=== PATIENT | female | born 1980 | race Caucasian/White ===

== ENCOUNTER 2016-09-04 14:12 | Emergency (ER) | payer OTHER ==
[2016-09-04 14:31] VITALS: TEMP 98.6
[2016-09-04 14:52] LABS: COLOR YELLOW; LEUKOCYTE ESTERASE,URINE NEGATIVE (NEGATIVE); NITRITE,URINE NEGATIVE (NEGATIVE)
--- NOTE | 2016-09-04 15:54 | EDPHY ---
H & P Time Seen by Provider: 09/04/16 15:44 HPI/ROS: CHIEF COMPLAINT: Abdominal pain. HISTORY OF PRESENT ILLNESS: The patient is a 35-year-old female with a history of PUD and colitis who presents with severe umbilical abdominal pain pain since Sunday. She has been unable to eat since the onset of the pain. The pain is constant and is worsened with eating and swallowing. It is associated with back pain as well. She reports that her BMs are normal for her. She denies vomiting, fever, or other complaints. She was last seen in the ED in May and admitted for colitis. Since then she has had an endoscopy and was was prescribed Linzess and daily Prilosec for erosions in her stomach. The pain today is similar in rating to the pain in May. REVIEW OF SYSTEMS: A complete 10-point review of systems was performed and is negative except for those items mentioned in the HPI. Past Medical/Surgical History: Bipolar disorder, colitis, appendicitis. Social History: Former smoker. Smoking Status: Former smoker Physical Exam: General Appearance: Tearful. Alert, no distress Eyes: Pupils equal and round, no conjunctival pallor or injection ENT, Mouth: Mucous membranes moist Neck: Normal inspection Respiratory: Lungs are clear to auscultation Cardiovascular: Regular rate and rhythm Gastrointestinal: Abdomen is soft. Epigastric tenderness, no peritoneal signs. Neurological: A&O, nonfocal, normal gait Skin: Warm and dry, no rash Extremities: Nontender, no pedal edema Psychiatric: Mood and affect normal Constitutional: Initial Vital Signs Temperature (C) 37 C 09/04/16 14:29 Heart Rate 94 09/04/16 14:29 Respiratory Rate 16 09/04/16 14:29 Blood Pressure 124/89 H 09/04/16 14:29 O2 Sat (%) 99 09/04/16 14:29 O2 Delivery Mode Room Air Allergies/Adverse Reactions: amoxicillin [Amoxicillin] Allergy (Severe, Verified 09/04/16 14:27) Vomiting amoxicillin trihydrate [From Augmentin] Allergy (Severe, Verified 09/04/16 14:27 ) Vomiting hydromorphone [Hydromorphone] Allergy (Severe, Verified 09/04/16 14:27) Itching potassium clavula *RETIRED-04/22/12 [From Augmentin] Allergy (Severe, Verified 09/04/16 14:27) Vomiting cephalexin monohydrate [From Keflex] Allergy (Verified 09/04/16 14:27) eggs Allergy (Uncoded 05/26/16 21:37) Anaphylaxis watermelon Allergy (Uncoded 05/26/16 21:37) Home Medications: Medication Instructions Recorded Ambien Cr 09/04/16 [facility]arez Nutritionals 09/04/16 Hydrocodone/APAP 5/325 [[place] 1 - 2 tab PO Q4H PRN #10 tab 09/04/16 5/325] Linzess 09/04/16 Ondansetron Odt [Zofran Odt 4 mg 4 mg PO Q4 PRN #6 tab 09/04/16 (*)] PRILOSEC 09/04/16 Pantoprazole Sodium [Protonix 40mg 40 mg PO DAILY #20 tab 09/04/16 (*)] Xanax 09/04/16 Zantac 09/04/16 Medical Decision Making ED Course/Re-evaluation: This patient presents with severe abdominal pain, without evidence of surgical abdomen. Given her recent extensive evaluation, I do not feel that repeat imaging is indicated. An IV was established and labs ordered. 1L IV saline administered for hydration, 40mg IV Protonix, 55ml PO GI cocktail, 6mg IV Morphine for abdominal pain, and 4mg IV Zofran for nausea. 1723: Reassessed patient. She reports that the GI cocktail initially made her feel worse, but she is now starting to feel better. Abdominal exam remains unchanged. Laboratory results discussed with the patient. Will discharge her home on Protonix, Zofran and [place]. Abdominal pain precautions given. Differential Diagnosis: Differential diagnosis includes though it is not limited to appendicitis, cholecystitis, diverticulitis, pyelonephritis, bowel perforation, small bowel obstruction. - Data Points Laboratory Results: Laboratory Results 09/04/16 16:20 09/04/16 16:20 Medications Given: Discontinued Medications Sodium Chloride (Ns) 1,000 mls @ 0 mls/hr IV ONCE ONE PRN Reason: Wide Open Stop: 09/04/16 15:57 Last Admin: 09/04/16 16:46 Dose: 1,000 mls Pantoprazole Sodium 40 mg/ (Sodium Chloride) 100 mls @ 200 mls/hr IV EDNOW ONE Stop: 09/04/16 16:26 Last Admin: 09/04/16 17:30 Dose: 100 mls Miscellaneous Medication (Gi Cocktail) 55 ml PO EDNOW ONE Stop: 09/04/16 15:57 Last Admin: 09/04/16 16:46 Dose: 55 ml Morphine Sulfate (Morphine) 6 mg IVP EDNOW ONE Stop: 09/04/16 15:57 Last Admin: 09/04/16 16:45 Dose: 6 mg Ondansetron HCl (Zofran) 4 mg IVP EDNOW ONE Stop: 09/04/16 15:57 Last Admin: 09/04/16 16:46 Dose: 4 mg Departure - Departure Disposition: Home, Routine, Self-Care Clinical Impression: Gastritis Qualifiers: Gastritis type: unspecified gastritis Chronicity: acute Gastritis bleeding: presence of bleeding unspecified Qualifier Code: (K29.00) Acute gastritis without bleeding Condition: Good Instructions: Gastritis (ED) Additional Instructions: Keep your appointment on with GI. Take Protonix as instructed. Use Vicodin as prescribed when needed for pain. Take Zofran as prescribed when needed for nausea. Return to the emergency department if you experience serious worsening of condition. Referrals: Kyle Perez MD [Primary Care Provider] - As per Instructions Prescriptions: Hydrocodone/APAP 5/325 [[place] 5/325] 1 - 2 tab PO Q4H PRN #10 tab PRN Reason: Pain, Moderate Pantoprazole Sodium [Protonix 40mg (*)] 40 mg PO DAILY #20 tab Ondansetron Odt [Zofran Odt 4 mg (*)] 4 mg PO Q4 PRN #6 tab PRN Reason: Nausea Report Scribed for: Luz Campos Report Scribed by: Bart Galeas Date of Report: 09/04/16 Time of Report: 15:45 Physician Review and Approval Statement: 09/04/16 15:45 Portions of this note were transcribed by a medical information specialist. I personally performed a history, physical exam, medical decision making, and confirmed accuracy of information the transcribed note.
[2016-09-04] MEDS ORDERED: ONDANSETRON 4 MG/2 ML VIAL IVP ONE (15:56)
[2016-09-04] MEDS ORDERED: NS 1,000 ML IV ONE (15:56)
[2016-09-04] MEDS ORDERED: MAALOX/LIDO/HYOSC GI COCKTAIL 55 ML BOTTLE PO ONE (15:56)
[2016-09-04] MEDS ORDERED: PANTOPRAZOLE SODIUM 40 MG in NS 100 ML IV ONE (15:57)
[2016-09-04 16:42] LABS: % IMMATURE GRANULYOCYTES 0.3 % (0.0-1.1); ABSOLUTE IMMATURE GRANULOCYTES 0.02 10^3/uL (0.00-0.10); ADD DIFF? NO; ADD MORPH? NO; ADD SCAN? NO; ATYPICAL LYMPHOCYTE FLAG 10 (0-99); FRAGMENT RBC FLAG 0 (0-99); HEMATOCRIT 42.5 % (38.0-47.0); HEMOGLOBIN 14.6 g/dL (12.6-16.3); LEFT SHIFT FLG 0 (0-99); LIPEMIA HEMOLYSIS FLAG 90 (0-99); MEAN CELL HEMOGLOBIN 31.1 pg (27.9-34.1); MEAN CELL HEMOGLOBIN CONCENTR. 34.4 g/dL (32.4-36.7); MEAN CELL VOLUME 90.6 fL (81.5-99.8); MEAN PLATELET VOLUME 10.2 fL (8.7-11.7); PLATELET CLUMPS FLAG 0 (0-99); PLATELET COUNT 249 10^3/uL (150-400); RED BLOOD CELL COUNT 4.69 10^6/uL (4.18-5.33); RED CELL DISTRIBUTION WIDTH 11.9 % (11.5-15.2)
[2016-09-04 17:55] LABS: ALANINE AMINOTRANSFERASE 34 IU/L (9-52); ALBUMIN 4.3 g/dL (3.5-5.0); ALKALINE PHOSPHATASE 55 IU/L (38-126); ANION GAP 13 mEq/L (8-16); ASPARTATE AMINOTRANSFERASE 23 IU/L (14-46); BILIRUBIN,TOTAL 0.6 mg/dL (0.1-1.4); BILIRUBIN-CONJUGATED 0.6 mg/dL (0.0-0.5); CALCIUM 9.6 mg/dL (8.5-10.4); CARBON DIOXIDE 23 mEq/l (22-31); CHLORIDE 105 mEq/L (97-110); CREATININE 0.9 mg/dL (0.6-1.0); GLOMERULAR FILTRATION RATE > 60; GLUCOSE 91 mg/dL (70-100); POTASSIUM 3.8 mEq/L (3.5-5.2); SODIUM 141 mEq/L (134-144)
[2016-09-04 18:46] VITALS: RESP 18
[2016-09-04 18:53] VITALS: BP 102/65; PULSE 77; O2SAT 99
== END 2016-09-04 18:53 | disposition home or self-care (01) ==
DX: K29.00 Acute gastritis without bleeding (principal); Z87.891 Personal history of nicotine dependence
CPT/HCPCS: 96365; J2405

== ENCOUNTER → 2016-09-06 | Outpatient (CLI) | payer OTHER ==
--- NOTE | 2016-09-06 16:55 | DX ---
Two-way Abdomen: Supine and erect. Reason for examination: Epigastric pain in a 35-year-old female with a history of colonic adhesions. Comparison to CT of the abdomen and pelvis performed May 26, 2016. Findings: Mild colonic dilatation has developed at the level of the splenic flexure and in the region of the transverse colon. There is relative possibility of gas in the colon distal to the splenic fle xure. No free air is seen. No masses or abnormal calcifications are identified. Osseous structures ar e normal for age. Impression: Development of mild distention of the colon centered in the region of the splenic flexure . Partial obstruction in the region of the descending colon cannot be excluded.
== END ==
LOC: FIMAGING 12:54
PROVIDERS: ATTEND Internal Medicine
DX: K63.89 Other specified diseases of intestine (principal)

== ENCOUNTER 2016-09-07 15:44 | Emergency (ER) | payer OTHER ==
[2016-09-07 15:48] VITALS: TEMP 98.1
--- NOTE | 2016-09-07 16:09 | EDPHY ---
H & P Stated Complaint: diarrhea for 2 days gen abd pain since sat here earlier in the wk Time Seen by Provider: 09/07/16 16:07 HPI/ROS: CHIEF COMPLAINT: Worsening abdominal pain HISTORY OF PRESENT ILLNESS: The patient is referred to the emergency department for worsening abdominal pain. She has had a fairly lengthy history of chronic abdominal pain with an extensive evaluation which diagnosed possible mild gastric ulcers. The patient did have medical treatment of this condition. She reportedly been taken off her medications for bipolar mood disorder. She was seen in the ED earlier in the week and had unremarkable laboratory studies. The patient did see her primary care provider 2 days ago repeated laboratory studies and they were unremarkable. He did order a KUB of her abdomen which the radiologist report stated that they could not fully exclude a colonic obstruction. The patient was seen by the Gastroenterology PA and referred to the ED today for further evaluation. Patient tells me that she has had 4 or 5 episodes of diarrhea today. She denies melena. She does report prior surgical history appendectomy. REVIEW OF SYSTEMS: A comprehensive 10 point review of systems is otherwise negative aside from elements mentioned in the history of present illness. Source: Patient Exam Limitations: No limitations - Personal History LMP (Females 10-55): Irregular Current Tetanus/Diphtheria Vaccine: Unsure Current Tetanus Diphtheria and Acellular Pertussis (TDAP): Unsure Tetanus Vaccine Date: 2013 - Medical/Surgical History Hx Asthma: No Hx Chronic Respiratory Disease: No Hx Diabetes: No Hx Cardiac Disease: No Hx Renal Disease: No Hx Cirrhosis: No Hx Alcoholism: No Hx HIV/AIDS: No Hx Splenectomy or Spleen Trauma: No Other PMH: APPY, CLYMIDIA INFECTION TURNED ABSCESS,. BIPOLAR, ASTHMA Nuva Ring in place - Social History Smoking Status: Former smoker - Physical Exam Exam: General Appearance: Alert, no distress Eyes: Pupils equal and round no pallor or injection ENT, Mouth: Mucous membranes moist Respiratory: There are no retractions, lungs are clear to auscultation Cardiovascular: Regular rate and rhythm Gastrointestinal: Abdomen is soft and nontender, no masses, bowel sounds normal Neurological: A&O, normal motor function, normal sensory exam, normal cranial nerves Skin: Warm and dry, no rashes Musculoskeletal: Neck is supple nontender Extremities: symmetrical, full range of motion Constitutional: Initial Vital Signs Temperature (C) 36.7 C 09/07/16 15:45 Heart Rate 82 09/07/16 15:45 Respiratory Rate 16 09/07/16 15:45 Blood Pressure 120/78 09/07/16 15:45 O2 Sat (%) 95 09/07/16 15:45 O2 Delivery Mode Room Air Allergies/Adverse Reactions: amoxicillin [Amoxicillin] Allergy (Severe, Verified 09/04/16 14:27) Vomiting amoxicillin trihydrate [From Augmentin] Allergy (Severe, Verified 09/04/16 14:27 ) Vomiting hydromorphone [Hydromorphone] Allergy (Severe, Verified 09/04/16 14:27) Itching potassium clavula *RETIRED-04/22/12 [From Augmentin] Allergy (Severe, Verified 09/04/16 14:27) Vomiting cephalexin monohydrate [From Keflex] Allergy (Verified 09/04/16 14:27) morphine Allergy (Verified 09/07/16 15:48) eggs Allergy (Uncoded 05/26/16 21:37) Anaphylaxis watermelon Allergy (Uncoded 05/26/16 21:37) Home Medications: Medication Instructions Recorded Ambien Cr 09/04/16 Nevarez Nutritionals 09/04/16 Hydrocodone/APAP 5/325 [[place] 1 - 2 tab PO Q4H PRN #10 tab 09/04/16 5/325] Linzess 09/04/16 Ondansetron Odt [Zofran Odt 4 mg 4 mg PO Q4 PRN #6 tab 09/04/16 (*)] PRILOSEC 09/04/16 Pantoprazole Sodium [Protonix 40mg 40 mg PO DAILY #20 tab 09/04/16 (*)] Xanax 09/04/16 Zantac 09/04/16 PERCOCET 2.5-325 MG TABLET 09/07/16 Medical Decision Making - Diagnostics Imaging: CT Scan of the Abdomen and Pelvis (With Contrast) September 07, 2016 at 1713 hours Abdomen: The lung bases are clear. No focal liver lesion. The gallbladder is unremarkable. The spleen is unremarkable. The pancreas is normal in size and appearance. Both adrenal glands are normal in size and appearance. Both kidneys enhance normally, without evidence for a mass or hydronephrosis. Possible wall thickening is seen in the stomach versus nondistention. Pelvis: The patient has had an appendectomy. No evidence for diverticulitis or colitis. No evidence for a small bowel obstruction. Minimal free fluid is seen in the pelvis. No evidence for a bladder calculus. No evidence for free intraperitoneal air. Impression: Possible gastritis. No evidence for colitis or bowel obstruction. Results discussed with Dr. Leander Mobley. ED Course/Re-evaluation: The patient presents to the ED for evaluation of subacute abdominal pain. The patient's vital signs are stable upon arrival. She has generalized abdominal tenderness without focality. She has no clinical evidence of peritonitis. I did review the patient's workup from several days ago. Her laboratory studies are retested found to be within normal limits. I did review with the results of the patient's plain film done 2 days ago. Given the questionable obstruction, a CT scan of the abdomen pelvis was ordered which demonstrates no evidence of significant intra-abdominal pathology. Patient does have some gastric thickening consistent with her known history of gastritis. The patient did receive IV fentanyl, Zofran and Ativan in the emergency department. At this point time I do not feel she has an acute surgical abdomen. The patient is currently being managed as an outpatient for gastritis. 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 Differential Diagnosis: Differential diagnosis considered includes perforation, obstruction, peptic ulcer disease, pancreatitis, cholecystitis, critical anemia - Data Points Laboratory Results: Laboratory Results 09/07/16 16:30 09/07/16 16:30 09/07/16 16:30 WBC 5.17 10^3/uL (3.80-9.50) RBC 4.50 10^6/uL (4.18-5.33) Hgb 14.2 g/dL (12.6-16.3) Hct 40.9 % (38.0-47.0) MCV 90.9 fL (81.5-99.8) MCH 31.6 pg (27.9-34.1) MCHC 34.7 g/dL (32.4-36.7) RDW 11.6 % (11.5-15.2) Plt Count 230 10^3/uL (150-400) MPV 10.0 fL (8.7-11.7) Neut % (Auto) 56.2 % (39.3-74.2) Lymph % (Auto) 35.2 % (15.0-45.0) Bartholomew % (Auto) 7.2 % (4.5-13.0) Eos % (Auto) 0.4 L % (0.6-7.6) Baso % (Auto) 0.8 % (0.3-1.7) Nucleat RBC Rel Count 0.0 % (0.0-0.2) Absolute Neuts (auto) 2.91 10^3/uL (1.70-6.50) Absolute Lymphs (auto) 1.82 10^3/uL (1.00-3.00) Absolute Monos (auto) 0.37 10^3/uL (0.30-0.80) Absolute Eos (auto) 0.02 L 10^3/uL (0.03-0.40) Absolute Basos (auto) 0.04 10^3/uL (0.02-0.10) Absolute Nucleated RBC 0.00 10^3/uL (0-0.01) Immature Gran % 0.2 % (0.0-1.1) Immature Gran # 0.01 10^3/uL (0.00-0.10) Sodium 139 mEq/L (134-144) Potassium 3.8 mEq/L (3.5-5.2) Chloride 105 mEq/L (97-110) Carbon Dioxide 23 mEq/l (22-31) Anion Gap 11 mEq/L (8-16) BUN 8 mg/dL (7-23) Creatinine 1.0 mg/dL (0.6-1.0) Estimated GFR > 60 Glucose 84 mg/dL (70-100) Calcium 9.3 mg/dL (8.5-10.4) Medications Given: Discontinued Medications Fentanyl (Sublimaze) 100 mcg IVP ONCE ONE Stop: 09/07/16 16:36 Last Admin: 09/07/16 16:40 Dose: 100 mcg Sodium Chloride (Ns) 1,000 mls @ 0 mls/hr IV ONCE ONE PRN Reason: Wide Open Stop: 09/07/16 16:14 Last Admin: 09/07/16 16:35 Dose: 1,000 mls Sodium Chloride (Ns) 1,000 mls @ 0 mls/hr IV ONCE ONE PRN Reason: Wide Open Stop: 09/07/16 18:16 Last Admin: 09/07/16 18:15 Dose: 1,000 mls Ondansetron HCl (Zofran) 4 mg IVP EDNOW ONE Stop: 09/07/16 16:36 Last Admin: 09/07/16 16:40 Dose: 4 mg Departure - Departure Disposition: Home, Routine, Self-Care Clinical Impression: Abdominal pain Qualifiers: Abdominal location: generalized Qualifier Code: (R10.84) Generalized abdominal pain Condition: Good
[2016-09-07] MEDS ORDERED: NS 1,000 ML IV ONE ×2 (16:13→18:15)
[2016-09-07] MEDS ORDERED: ONDANSETRON 4 MG/2 ML VIAL IVP ONE (16:35)
[2016-09-07] MEDS ORDERED: fentaNYL 100 MCG/2 ML INJ IVP ONE (16:35)
[2016-09-07 16:40] LABS: % IMMATURE GRANULYOCYTES 0.2 % (0.0-1.1); ABSOLUTE IMMATURE GRANULOCYTES 0.01 10^3/uL (0.00-0.10); ADD DIFF? NO; ADD MORPH? NO; ADD SCAN? NO; ATYPICAL LYMPHOCYTE FLAG 10 (0-99); FRAGMENT RBC FLAG 0 (0-99); HEMATOCRIT 40.9 % (38.0-47.0); HEMOGLOBIN 14.2 g/dL (12.6-16.3); LEFT SHIFT FLG 0 (0-99); LIPEMIA HEMOLYSIS FLAG 90 (0-99); MEAN CELL HEMOGLOBIN 31.6 pg (27.9-34.1); MEAN CELL HEMOGLOBIN CONCENTR. 34.7 g/dL (32.4-36.7); MEAN CELL VOLUME 90.9 fL (81.5-99.8); PLATELET CLUMPS FLAG 0 (0-99); PLATELET COUNT 230 10^3/uL (150-400); RED CELL DISTRIBUTION WIDTH 11.6 % (11.5-15.2)
[2016-09-07 16:44] VITALS: RESP 17
[2016-09-07] MEDS ORDERED: IOPAMIDOL (ISOVUE-300) 100 ML BTL IV ONE (16:54)
[2016-09-07 16:58] LABS: ANION GAP 11 mEq/L (8-16); CALCIUM 9.3 mg/dL (8.5-10.4); CARBON DIOXIDE 23 mEq/l (22-31); CHLORIDE 105 mEq/L (97-110); GLOMERULAR FILTRATION RATE > 60; GLUCOSE 84 mg/dL (70-100); POTASSIUM 3.8 mEq/L (3.5-5.2); SODIUM 139 mEq/L (134-144)
--- NOTE | 2016-09-07 18:43 | CT ---
CT Scan of the Abdomen and Pelvis (With Contrast) September 07, 2016 at 1713 hours Indication: Abdominal pain. Diarrhea. Technique: 90 mL of Isovue-300 were given intravenously by machine power injection. Oral contrast n ot administered. Multidetector helical CT imaging was performed from the diaphragm to the symphysis pubis. Dose reduction techniques were utilized. Comparison: May 2016. Findings Abdomen: The lung bases are clear. No focal liver lesion. The gallbladder is unremarkable. The sp connie is unremarkable. The pancreas is normal in size and appearance. Both adrenal glands are normal in size and appearance. Both kidneys enhance normally, without evidence for a mass or hydronephrosi s. Possible wall thickening is seen in the stomach versus nondistention. Pelvis: The patient has had an appendectomy. No evidence for diverticulitis or colitis. No evidenc e for a small bowel obstruction. Minimal free fluid is seen in the pelvis. No evidence for a bladde r calculus. No evidence for free intraperitoneal air. Impression: Possible gastritis. No evidence for colitis or bowel obstruction. Results discussed with Dr. Leander Mobley. E:bon
[2016-09-07 18:55] VITALS: PULSE 64
[2016-09-07 20:01] VITALS: BP 112/76; O2SAT 95
== END 2016-09-07 20:01 | disposition home or self-care (01) ==
DX: R10.84 Generalized abdominal pain (principal); J45.909 Unspecified asthma, uncomplicated; Z87.891 Personal history of nicotine dependence
CPT/HCPCS: 96374; J2405; J3010; Q9967

== ENCOUNTER → 2018-03-11 | Outpatient (CLI) | payer OTHER | LOC: FIMAGING 16:09 | PROVIDERS: ATTEND Internal Medicine | DX: T83.32XA Displacement of intrauterine contraceptive device, initial encounter (principal) ==